=== PATIENT | female | born 1965 | race Two or more races ===

== ENCOUNTER 2022-10-07 11:30 | Emergency (ER) | payer MEDICAID, OTHER ==
[~2022-10-07] VITALS: Ht 160 cm; Wt 58.8 kg
[2022-10-07 16:05] VITALS: BP 107/63
[2022-10-07] MEDS ORDERED: IBUP600T27 PO (16:26)
[2022-10-07] MEDS ORDERED: HYDR-4902 PO (16:26)
[2022-10-07] MEDS ORDERED: KETOROLAC TROMETH 60MG/2ML VIAL IM ONE (16:30)
[2022-10-07] MEDS ORDERED: DexAMETHasone SOD PHOS 10MG/1ML VIAL INJ IM ONE (16:30)
== END 2022-10-07 16:27 | disposition home or self-care (01) ==
LOC: ER 11:30
DX: M79.18 Myalgia, other site (principal); M35.9 Systemic involvement of connective tissue, unspecified; M13.862 Other specified arthritis, left knee; M13.861 Other specified arthritis, right knee; R94.31 Abnormal electrocardiogram [ECG] [EKG]
CPT/HCPCS: 93005; 96372; 99284; J1100; J1885